=== PATIENT | female | born 1985 | race Caucasian/White ===

== ENCOUNTER 2017-08-14 21:09 | Emergency (ER) | payer BC, MEDICAID ==
[2017-08-14 21:21] VITALS: BMI 29.9
[2017-08-14] MEDS ORDERED: DiphenhydrAMINE 50 mg/ml Inj IVP ONE (21:45)
--- NOTE | 2017-08-14 21:54 | ED PDOC ---
Arrival/HPI - General Chief Complaint: Headache Time Seen by Provider: 08/14/17 21:12 Historian: Patient - History of Present Illness Narrative History of Present Illness (Text): 08/14/17 21:15 Rhoda Harvey is a 32 year old female, whose past medical history includes chronic migraines, who presents to the emergency department complaining of worsening migraine to the den[place] sides of her head with associated dizziness and nausea for 2 weeks. Patient states that she usually takes Advil and Tylenol which brought no relief. Patient saw her PMD today and was prescribed Imitrex with no relief. Patient denies any fever, chills, chest pain, shortness of breath, abdominal pain, diarrhea, urinary symptoms, back pain, neck pain, or any other complaints. Time/Duration: < month Symptom Onset: Gradual Severity Level: Mild Activities at Onset: Light Context: Home Past Medical History - Provider Review Nursing Documentation Reviewed: Yes - Infectious Disease Hx of Infectious Diseases: None - Tetanus Immunization Tetanus Immunization: Unknown - Past Medical History Past Medical History: No Previous - Neurological Hx Migraine: Yes - Psychiatric Hx Substance Use: No - Surgical History Hx Section: Yes - Anesthesia Hx Anesthesia: Yes Hx Anesthesia Reactions: No Hx Malignant Hyperthermia: No - Suicidal Assessment Feels Threatened In Home Enviroment: No Family/Social History - Physician Review Nursing Documentation Reviewed: Yes Family/Social History: No Known Family HX Smoking Status: Never Smoked Hx Alcohol Use: Yes Frequency of alcohol use: Socially Hx Substance Use: No Allergies/Home Meds Allergies/Adverse Reactions: Allergies No Known Allergies Allergy (Verified 08/14/17 21:25) Home Medications: Home Meds Medication Instructions Recorded Confirmed Sumatriptan Succinate [Imitrex] 1 tab PO PRN PRN 08/14/17 08/14/17 Review of Systems - Physician Review All systems were reviewed & negative as marked: Yes - Review of Systems Constitutional: absent: Fevers, Night Sweats Eyes: absent: Vision Changes ENT: absent: Hearing Changes Respiratory: absent: SOB, Cough Cardiovascular: absent: Chest Pain Gastrointestinal: Nausea. absent: Abdominal Pain Genitourinary Female: absent: Dysuria, Frequency Musculoskeletal: absent: Arthralgias Skin: absent: Rash, Pruritis Neurological: Headache, Dizziness Endocrine: absent: Diaphoresis Hemo/Lymphatic: absent: Adenopathy Psychiatric: absent: Anxiety Physical Exam Vital Signs Reviewed: Yes Vital Signs Temp Pulse Resp BP Pulse Ox 08/14/17 23:50 98.0 F 81 18 133/84 98 08/14/17 21:22 98.7 F 80 20 133/91 H 100 Temperature: Afebrile Blood Pressure: Hypertensive Pulse: Regular Respiratory Rate: Normal Appearance: Positive for: Well-Appearing, Non-Toxic, Comfortable Pain Distress: None Mental Status: Positive for: Alert and Oriented X 3 - Systems Exam Head: Present: Atraumatic, Normocephalic Pupils: Present: PERRL Extroacular Muscles: Present: EOMI Conjunctiva: Present: Normal Ears: Present: NORMAL TM Mouth: Present: Moist Mucous Membranes Pharnyx: Present: Normal Neck: Present: Normal Range of Motion. No: Meningeal Signs Respiratory/Chest: Present: Clear to Auscultation, Good Air Exchange. No: Respiratory Distress, Accessory Muscle Use Cardiovascular: Present: Regular Rate and Rhythm, Normal S1, S2. No: Murmurs Abdomen: Present: Normal Bowel Sounds. No: Tenderness, Distention, Peritoneal Signs Back: Present: Normal Inspection Upper Extremity: Present: Normal Inspection. No: Cyanosis, Edema Lower Extremity: Present: Normal Inspection. No: Edema Neurological: Present: GCS=15, CN II-XII Intact, Speech Normal, Motor Func Grossly Intact, Normal Sensory Function Skin: Present: Warm, Dry, Normal Color. No: Rashes Psychiatric: Present: Alert, Oriented x 3, Normal Insight, Normal Concentration Medical Decision Making ED Course and Treatment: 08/14/17 21:55 Impression: 32 year old female complaining of worsening migraine to the top sides of her head with associated dizziness and nausea for 2 weeks. Differential Diagnosis included but are not limited to: Plan: -- Head CT w/o contrast -- Benadryl, Reglan, and IV Fluids -- Reassess and disposition Progress Notes: 08/14/17 23:04 CT Head Without Intravenous Contrast: Creator : Per Silver MD FINDINGS: Brain: No intracranial hemorrhage. No mass. No definite edema. Ventricles: No hydrocephalus. Bones/joints: No acute fracture. Soft tissues: Unremarkable. Sinuses: No acute sinusitis. Mastoid air cells: No mastoid effusion. Orbits: Unremarkable as visualized. IMPRESSION: 1. No acute intracranial abnormality. 08/14/17 23:43 Pt. with 100% relief following treatment. - RAD Interpretation Radiology Orders: 08/14/17 21:44 HEAD W/O CONTRAST [CT] Stat - Medication Orders Current Medication Orders: Discontinued Medications Diphenhydramine HCl (Benadryl) 25 mg IVP ONCE ONE Stop: 08/14/17 21:46 Last Admin: 08/14/17 22:22 Dose: 25 mg IVP Administration Document 08/14/17 22:22 EQ (Rec: 08/14/17 22:22 EQ [id number]) Charges for Administration # of IVP Administrations 1 Sodium Chloride (Sodium Chloride 0.9%) 1,000 mls @ 100 mls/hr IV .Q10H CONSUELO Last Admin: 08/14/17 23:49 Dose: 100 mls/hr eMAR Start Stop Document 08/14/17 23:49 HAYLEE (Rec: 08/14/17 23:49 HAYLEE [id number]) Intravenous Solution Start Date 08/14/17 Start Time 22:20 End Date 08/14/17 End time 23:49 Total Infusion Time 89 Metoclopramide HCl (Reglan) 10 mg IVP ONCE ONE Stop: 08/14/17 21:46 Last Admin: 08/14/17 22:22 Dose: 10 mg IVP Administration Document 08/14/17 22:22 EQ (Rec: 08/14/17 22:22 EQ [id number]) Charges for Administration # of IVP Administrations 1 - Scribe Statement The provider has reviewed the documentation as recorded by the Ham Tao Provider Scribe Attestation: All medical record entries made by the Juiceibmarika were at my direction and personally dictated by me. I have reviewed the chart and agree that the record accurately reflects my personal performance of the history, physical exam, medical decision making, and the department course for this patient. I have also personally directed, reviewed, and agree with the discharge instructions and disposition Disposition/Present on Arrival - Present on Arrival Any Indicators Present on Arrival: No History of DVT/PE: No History of Uncontrolled Diabetes: No Urinary Catheter: No History of Decub. Ulcer: No History Surgical Site Infection Following: None - Disposition Have Diagnosis and Disposition been Completed?: Yes Diagnosis: Migraine Disposition: HOME/ ROUTINE Disposition Time: 23:41 Patient Plan: Discharge Condition: GOOD Discharge Instructions (ExitCare): Migraine Headache (ED) Additional Instructions: Take meds as prescribed/follow up with your doctor this week Prescriptions: Acetaminophen/Butalbital/Caf [Fioricet] 1 tab PO Q6 PRN #16 tab PRN Reason: Headache Forms: [facility] (Beninese)
[2017-08-14] MEDS: Sodium Chloride 0.9% 1,000 ML IV SCH ×2 (22:22→23:49)
--- NOTE | 2017-08-14 22:41 | CT ---
EXAM: CT Head Without Intravenous Contrast CLINICAL HISTORY: 32 years old, female; Pain; Headache TECHNIQUE: Axial computed tomography images of the head/brain without intravenous contrast. All CT scans at this facility use one or more dose reduction techniques, viz.: automated exposure control; ma/kV adjustment per patient size (including targeted exams where dose is matched to indication; i.e. head); or iterative reconstruction technique. COMPARISON: No relevant prior studies available. FINDINGS: Brain: No intracranial hemorrhage. No mass. No definite edema. Ventricles: No hydrocephalus. Bones/joints: No acute fracture. Soft tissues: Unremarkable. Sinuses: No acute sinusitis. Mastoid air cells: No mastoid effusion. Orbits: Unremarkable as visualized. IMPRESSION: 1. No acute intracranial abnormality.
[2017-08-14 23:50] VITALS: BP 133/84; PULSE 81; RESP 18; TEMP 98; O2SAT 98
== END 2017-08-14 23:50 | disposition home or self-care (01) ==
LOC: ED 21:09
DX: G43.909 Migraine, unspecified, not intractable, without status migrainosus (principal)
CPT/HCPCS: 70450; 96361; 96374; 96375; 99285; J1200; J2765; J7040

== ENCOUNTER 2018-11-04 21:41 | Emergency (ER) | payer BC, MEDICAID ==
[2018-11-04 22:30] VITALS: TEMP 97.8; BMI 31.8
[2018-11-04] MEDS ORDERED: DiphenhydrAMINE 50 mg/ml Inj IVP STA (22:52)
[2018-11-04] MEDS ORDERED: Sodium Chloride 0.9% 1,000 ML IV STA (22:52)
--- NOTE | 2018-11-04 23:00 | ED PDOC ---
Arrival/HPI - General Chief Complaint: Headache Time Seen by Provider: 11/04/18 22:22 Historian: Patient - History of Present Illness Narrative History of Present Illness (Text): 11/04/18 22:56 33 yo F w/ PMH of migraines complaining of throbbing L sided headache which began 1 week ago after accidentally hitting her head on the door. Reports taking motrin and tylenol without improvement. Denies any URI, fever, N/V, neck pain, photo/phono sensitivity, focal numbness or weakness. Past Medical History - Infectious Disease Hx of Infectious Diseases: None - Tetanus Immunization Tetanus Immunization: Unknown - Past Medical History Past Medical History: No Previous - Neurological Hx Migraine: Yes - Psychiatric Hx Substance Use: No - Surgical History Hx Section: Yes - Anesthesia Hx Anesthesia: Yes Hx Anesthesia Reactions: No Hx Malignant Hyperthermia: No - Suicidal Assessment Feels Threatened In Home Enviroment: No Family/Social History Family/Social History: No Known Family HX Smoking Status: Never Smoked Hx Alcohol Use: Yes Frequency of alcohol use: Socially Hx Substance Use: No Allergies/Home Meds Allergies/Adverse Reactions: Allergies No Known Allergies Allergy (Verified 08/14/17 21:25) Review of Systems - Review of Systems Constitutional: absent: Fatigue, Fevers Respiratory: absent: SOB, Cough Cardiovascular: absent: Chest Pain, Palpitations Gastrointestinal: absent: Abdominal Pain, Nausea, Vomiting Musculoskeletal: absent: Arthralgias, Back Pain, Neck Pain Skin: absent: Rash, Pruritis, Skin Lesions Neurological: Headache. absent: Dizziness Physical Exam Vital Signs Temp Pulse Resp BP Pulse Ox 11/04/18 22:22 97.8 F 81 18 129/72 96 Temperature: Afebrile Blood Pressure: Normal Pulse: Regular Respiratory Rate: Normal Appearance: Positive for: Well-Appearing, Non-Toxic, Comfortable Pain Distress: None Mental Status: Positive for: Alert and Oriented X 3 - Systems Exam Head: Present: Swelling (+minimal swelling to the L sabianism of the forehead) Pupils: Present: PERRL Extroacular Muscles: Present: EOMI Conjunctiva: Present: Normal Mouth: Present: Moist Mucous Membranes Neck: Present: Normal Range of Motion. No: MIDLINE TENDERNESS, Paraspinal Tenderness Respiratory/Chest: Present: Clear to Auscultation, Good Air Exchange. No: Respiratory Distress, Accessory Muscle Use Cardiovascular: Present: Regular Rate and Rhythm, Normal S1, S2. No: Murmurs Abdomen: No: Tenderness, Distention, Peritoneal Signs Back: Present: Normal Inspection. No: Midline Tenderness, Paraspinal Tenderness Upper Extremity: Present: Normal Inspection. No: Cyanosis, Edema Lower Extremity: Present: Normal Inspection. No: Edema Neurological: Present: GCS=15, CN II-XII Intact, Speech Normal, Motor Func Grossly Intact, Normal Sensory Function Skin: Present: Warm, Dry, Normal Color. No: Rashes Psychiatric: Present: Alert, Oriented x 3, Normal Insight, Normal Concentration Medical Decision Making ED Course and Treatment: 11/04/18 22:55 Plan : - CT head - IV - NS bolus IV - reglan IV - benadryl IV [facility] [place] (-) CT head : BRAIN No acute intraparenchymal hemorrhage. No mass lesion. No CT evidence for acute territorial infarct. No midline shift or extra-axial collections. VENTRICLES: No hydrocephalus. ORBITS: The orbits are unremarkable. SINUSES AND MASTOIDS: The paranasal sinuses and mastoid air cells are clear. BONES: No fracture. SOFT TISSUES: Unremarkable. IMPRESSION: No acute intracranial abnormality. Electronically signed on Nov 04, 2018 11:36:20 PM EST by: Rajesh Champagne M.D., TERESA [facility] Trained MRI and CT Specialist On reevaluation, patient reports improvement of symptoms, denies any headache, dizziness or nausea. On exam, patient remains awake alert and oriented 3 in no acute distress. Repeat neuro exam shows no focal findings. Diagnostic results d/w the patient. Advised to follow up with primary care physician and neuro referral in 1-2 days without fail. Advised to take medication as prescribed. Return to the emergency room at any time for any new or worsening symptoms. Patient states she fully agrees with and understands discharge instructions. States that she agrees with the plan and disposition. Verbalized and repeated discharge instructions and plan. I have given the patient opportunity to ask any additional questions. - RAD Interpretation Radiology Orders: 11/04/18 22:46 HEAD W/O CONTRAST [CT] Stat Manager Traffic: Radiologist - Medication Orders Current Medication Orders: Sodium Chloride (Sodium Chloride 0.9%) 1,000 mls @ 1,000 mls/hr IV .Q1H STA Stop: 11/04/18 23:51 Discontinued Medications Diphenhydramine HCl (Benadryl) 25 mg IVP STAT STA Stop: 11/04/18 22:53 Metoclopramide HCl (Reglan) 10 mg IVP STAT STA Stop: 11/04/18 22:53 - PA / [employer] / Resident Statement MD/ has reviewed & agrees with the documentation as recorded. Disposition/Present on Arrival - Present on Arrival Any Indicators Present on Arrival: No History of DVT/PE: No History of Uncontrolled Diabetes: No Urinary Catheter: No History of Decub. Ulcer: No History Surgical Site Infection Following: None - Disposition Have Diagnosis and Disposition been Completed?: Yes Diagnosis: Migraine headache Disposition: HOME/ ROUTINE Disposition Time: 00:00 Patient Plan: Discharge Patient Problems: Current Active Problems Problem Status Onset Migraine headache Acute Condition: IMPROVED Discharge Instructions (ExitCare): Migraine Headache (DC) Additional Instructions: Thank you for letting us take care of you today. You were treated for headache, likely migraine. The emergency medical care you received today was directed at your acute symptoms. If you were prescribed any medication, please fill it and take as directed. It may take several days for your symptoms to resolve. Return to the Emergency Department if your symptoms worsen, do not improve, or if you have any other problems. Please contact your doctor in 2 days for re-evaluation and follow up / or call one of the physicians/clinics you have been referred to that are listed on the Patient Visit Information form that is included in your discharge packet. Bring any paperwork you were given at discharge with you along with any medications you are taking to your follow up visit. Our treatment cannot replace ongoing medical care by a primary care provider (PCP) outside of the emergency department. Thank you for allowing the [facility] team to be part of your care today. If you had a CT scan: A Radiologist will review the ED reading if any change in treatment is needed we will contact you. Prescriptions: Metoclopramide HCl [Reglan] 10 mg PO QID PRN #20 tablet PRN Reason: Headache Referrals: Kiana Abbasi MD [Staff Provider] - Follow up with primary Forms: [employer] (Kyrgyz), WORK NOTE
[2018-11-05 00:40] VITALS: BP 105/57; PULSE 68; RESP 20; O2SAT 95
--- NOTE | 2018-11-05 07:49 | CT ---
Date of service: 11/04/2018 PROCEDURE: CT HEAD WITHOUT CONTRAST. HISTORY: headache, h/o minor trauma COMPARISON: None available. TECHNIQUE: Axial computed tomography images were obtained through the head/brain without intravenous contrast. Radiation dose: Total exam DLP = 869.06 mGy-cm. This CT exam was performed using one or more of the following dose reduction techniques: Automated exposure control, adjustment of the mA and/or kV according to patient size, and/or use of iterative reconstruction technique. FINDINGS: HEMORRHAGE: No intracranial hemorrhage. BRAIN: No mass effect or edema. No atrophy or chronic microvascular ischemic changes. VENTRICLES: Unremarkable. No hydrocephalus. CALVARIUM: Unremarkable. PARANASAL SINUSES: Unremarkable as visualized. No significant inflammatory changes. MASTOID AIR CELLS: Unremarkable as visualized. No inflammatory changes. OTHER FINDINGS: The report concurs with the preliminary [facility] report IMPRESSION: No acute intracranial findings
== END 2018-11-05 00:38 | disposition home or self-care (01) ==
LOC: ED 21:41
DX: G43.909 Migraine, unspecified, not intractable, without status migrainosus (principal)
CPT/HCPCS: 70450; 81025; 96361; 96374; 96375; 99285; J1200; J2765; J7030